=== PATIENT | female | born 1980 | race Caucasian/White ===

== ENCOUNTER 2018-11-05 08:16 | Day surgery (SDC) | payer OTHER ==
[2018-11-05] MEDS ORDERED: DIPHENHYDRAMINE 50 MG INJ (11:18)
[2018-11-05] MEDS ORDERED: MEPERIDINE 50 MG INJ (11:38)
[2018-11-05] MEDS ORDERED: MIDAZOLAM 1 MG/ML 2 ML INJ ×3 (11:38)
== END 2018-11-05 12:54 | disposition home or self-care (01) ==
LOC: GIL 08:16
DX: R19.4 Change in bowel habit (principal)
CPT/HCPCS: 43235; 84703